=== PATIENT | female | born 1940 | race Caucasian/White ===

== ENCOUNTER → 2018-11-27 | Outpatient (CLI) | payer MEDICARE ==
[~2018-11-27] MED LIST: ALBU2.5V8 IH; AMLO10TA8 PO; ASPI325T8 PO; BUME1TAB3 PO; CHOL100013 PO; CLON0.2T PO; CLON1PAT10 TD; HYDR-2761 PO; LIDOCAINE 1%/EPI 1:100,000 20 ML VIAL. INJ ONE; LIDOCAINE 2%/EPI 1:100,000 20 ML VIAL. ONE; LIDOCAINE WITH 8.4% SOD BICARB 3 ML DISP.SYRIN. INJ ONE; LOSA100T14 PO; SIMV20TA3 PO; SOTA120T PO; TIOT18CA IH; TIOT4MIS3 IH
--- NOTE | 2018-11-29 14:06 | PATHOLOGY ---
[facility] Accession Number: [id number] . 01 Material submitted: . breast - LEFT BREAST CALCIFICATIONS IN GRID. Modifiers: left . 01 Clinical history: . Left breast calcifications . 02 Diagnosis: Breast tissue, left breast stereotactic needle biopsies: - DUCTAL CARCINOMA IN SITU, HIGH GRADE, SOLID TYPE WITH COMEDO-TYPE NECROSIS AND ASSOCIATED CALCIFICATIONS. SEE COMMENT LBQ/11/29/2018 . 02 Comment: Sections of the left breast stereotactic needle biopsy show high grade ductal carcinoma in situ of solid type with comedo-type necrosis. There are associated calcifications within the areas of comedo-type necrosis. There is no evidence of invasive carcinoma. Breast prognostic studies will be obtained, the results of which will be reported separately. The case is also examined by Dr. Brand, who concurs with the diagnosis. (JPM/db; 11/28/2018) . 02 Electronically signed: . Ulysses Hedrick MD, Pathologist NPI- [id number] . 01 Gross description: . The specimen is received in formalin, labeled "Brown, Christina, left breast calcifications" and consists of a pink cassette containing multiple needle cores of yellow tissue measuring 2.4 x 1.0 x 0.4 cm which are transferred to cassette A1. The specimen was obtained at 1:35 AM on 11/27/2018 and placed in formalin at 1:39 PM. The cold ischemic time is 4 minutes and the total formalin fixation time is greater than 6 hours but less than 72 hours. (SDY; 11/27/2018) SYU/SYU . 02 Pathologist provided ICD-10: D05.12 . 02 CPT . 562784 Specimen Comment: A courtesy copy of this report has been sent to Specimen Comment: [phone], , . Specimen Comment: Report sent to ,DR BALDERAS / DR KAUR Performed at: [address], [place] [id number] MD Gustavo Hahn MD Phone: [phone] Performed at: 02 [facility] [address] [place], [place] [id number] MD Ulysses Hedrick MD Phone: [phone]
--- NOTE | 2018-12-04 09:31 | RAD ---
Stereotactic left breast biopsy, 11/27/2018: HISTORY: Suspicious microcalcifications Previous imaging demonstrated a cluster of suspicious microcalcifications in the superolateral aspect of the left breast. Under local anesthesia, aseptic conditions and stereotactic guidance multiple 9 gauge vacuum-assisted core samples were obtained from this region via a superior approach. Specimen mammography demonstrated numerous targeted microcalcifications within the specimens. A biopsy marker was deposited at the biopsy site. The biopsy instrument was then removed and hemostasis obtained. Two-view digital mammograms were then obtained to document position of the biopsy marker. There are residual microcalcifications in this region as anticipated. The patient tolerated procedure well and left the department in good condition. The subsequent pathology report indicated the presence of ductal carcinoma in situ, high-grade. This is considered to be a concordant finding. Note: The findings were called to personnel in Dr. Patterson's office at 9:27 AM on 12/04/2018.
== END | disposition home or self-care (01) ==
LOC: MAMMO 12:35
PROVIDERS: ATTEND Surgery
DX: D05.12 Intraductal carcinoma in situ of left breast (principal)
CPT/HCPCS: 19081; 77065; 88305; 88361; C1713; 19085; 77022

== ENCOUNTER → 2019-01-03 | Outpatient (CLI) | payer MEDICARE ==
[~2019-01-03] MED LIST changes: -LIDOCAINE 1%/EPI 1:100,000 20 ML VIAL. INJ ONE; -LIDOCAINE 2%/EPI 1:100,000 20 ML VIAL. ONE; -LIDOCAINE WITH 8.4% SOD BICARB 3 ML DISP.SYRIN. INJ ONE
[2019-01-03 13:01] LABS: BASO # 0.1 x10^3/uL (0.0-0.2); BASO % 1 % (0-3); EOS # 0.2 x10^3/uL (0.0-0.7); EOS % 3 % (0-3); HEMOGLOBIN 13.8 g/dL (12.0-15.5); LYMPH # 2.1 x10^3/uL (1.0-4.8); LYMPH % 27 % (24-48); MEAN CORPUSCULAR HEMOGLOBIN 30 pg (25-35); MEAN CORPUSCULAR HGB CONC 34 g/dL (31-37); MEAN CORPUSCULAR VOLUME 89 fL (79-100); MONO # 0.6 x10^3/uL (0.0-1.1); MONO % 8 % (0-9); NEUT # 4.9 x10^3/uL (1.8-7.7); NEUT % 62 % (31-73); PLATELET COUNT 268 x10^3/uL (140-400); RED BLOOD COUNT 4.58 x10^6/uL (3.50-5.40); RED CELL DISTRIBUTION WIDTH 13.6 % (11.5-14.5); WHITE BLOOD COUNT 7.8 x10^3/uL (4.0-11.0)
[2019-01-03 13:10] LABS: ALBUMIN 4.3 g/dL (3.4-5.0); CALCIUM 11.3 mg/dL (8.5-10.1); CREATININE 1.1 mg/dL (0.6-1.0); GFR 47.9; POTASSIUM 4.2 mmol/L (3.5-5.1)
== END | disposition home or self-care (01) ==
LOC: SURGPAT 12:25
PROVIDERS: ATTEND Surgery
DX: Z01.818 Encounter for other preprocedural examination (principal); D05.12 Intraductal carcinoma in situ of left breast; Z88.2 Allergy status to sulfonamides
CPT/HCPCS: 36415; 80048; 82040; 85025

== ENCOUNTER 2020-05-29 17:54 | Emergency (ER) | payer MEDICARE ==
[~2020-05-29] VITALS: Ht 157.5 cm; Wt 45.4 kg
[~2020-05-29 17:54] MED LIST changes: +AMLO-187 PO; -AMLO10TA8 PO; +MAGN296S68 PO; +SIMV20TA18 PO; -SIMV20TA3 PO
[2020-05-29 18:39] LABS: BASO # 0.1 x10^3/uL (0.0-0.2); BASO % 1 % (0-3); EOS # 0.1 x10^3/uL (0.0-0.7); EOS % 1 % (0-3); HEMATOCRIT 38.7 % (36.0-47.0); HEMOGLOBIN 13.1 g/dL (12.0-15.5); LYMPH # 1.8 x10^3/uL (1.0-4.8); LYMPH % 21 % (24-48); MEAN CORPUSCULAR HEMOGLOBIN 31 pg (25-35); MEAN CORPUSCULAR HGB CONC 34 g/dL (31-37); MEAN CORPUSCULAR VOLUME 91 fL (79-100); MONO # 0.8 x10^3/uL (0.0-1.1); MONO % 9 % (0-9); NEUT # 5.9 x10^3/uL (1.8-7.7); NEUT % 68 % (31-73); PLATELET COUNT 238 x10^3/uL (140-400); RED BLOOD COUNT 4.26 x10^6/uL (3.50-5.40); RED CELL DISTRIBUTION WIDTH 13.4 % (11.5-14.5); WHITE BLOOD COUNT 8.7 x10^3/uL (4.0-11.0)
--- NOTE | 2020-05-29 18:45 | PHYS DOC ---
Past Medical History Past Medical History: Cancer, COPD, GERD, High Cholesterol, Hypertension, Other Additional Past Medical Histor: BREAST CANCER Past Surgical History: Pacemaker, Other Additional Past Surgical Histo: LEFT MASTECTOMY Smoking Status: Never Smoker Alcohol Use: None Drug Use: None General Adult EDM: Chief Complaint: MULTIPLE COMPLAINTS HPI: HPI: 79-year-old female past medical history significant for breast cancer stage 0, hypertension, hyperlipidemia, COPD, osteoarthritis, and pacemaker use, presents to the ED with complaints of generalized weakness, fatigue, loose brown stools, 2 times a day, dark urine, and 35 pound weight loss over the past few months. Also c/o "a ball back there, something hard," in her rectum. Reports she had a pacemaker replaced 2 months ago and had negative Covid test at that time. Review of Systems: Review of Systems: Constitutional: Denies fever or chills. [] Eyes: Denies change in visual acuity. [] HENT: Denies nasal congestion or sore throat. [] Respiratory: Denies cough or shortness of breath. [] Cardiovascular: Denies chest pain or edema. [] GI: Denies abdominal pain, nausea, vomiting, melena, hematochezia, hematemesis, : Denies dysuria. [] Musculoskeletal: Denies back pain or joint pain. [] Integument: Denies rash. [] Neurologic: Denies headache, focal weakness or sensory changes. [] Endocrine: Denies polyuria or polydipsia. [] Lymphatic: Denies swollen glands. [] Psychiatric: Denies depression or anxiety. [] Heart Score: Risk Factors: Risk Factors: DM, Current or recent (<one month) smoker, HTN, HLP, family history of CAD, obesity. Risk Scores: Score 0 - 3: 2.5% MACE over next 6 weeks - Discharge Home Score 4 - 6: 20.3% MACE over next 6 weeks - Admit for Clinical Observation Score 7 - 10: 72.7% MACE over next 6 weeks - Early Invasive Strategies Allergies: Allergies: Allergies Coded Allergies Type Severity Reaction Last Updated Verified Sulfa (Sulfonamide Antibiotics) Allergy Intermediate 01/07/19 Yes Physical Exam: PE: Constitutional: no acute distress, non-toxic appearance, clothing loose and does not fit (at least 4 sizes too big) HENT: Normocephalic, atraumatic, Eyes: EOMI, conjunctiva normal, no discharge. Neck: Normal range of motion, supple, Cardiovascular: S1/2 present, regular rhythm Lungs & Thorax: Speaking in full sentences, bilateral equal chest rise, no tachy pnea or increased work of breathing Abdomen: soft, no tenderness, Skin: Warm, dry, no erythema, no rash, very thin with skin folds Back: No tenderness, no CVA tenderness. [] Extremities: No tenderness, no cyanosis, no edema Neurologic: Alert and oriented X 3, normal motor function, normal sensory function, no focal deficits noted. [] Psychologic: Affect normal, judgement normal, mood normal. [] Rectal exam: large amount of stool in rectum removed via disimpaction, normal brown color, pt tolerated exam well, no brbpr, no melena Current Patient Data: Labs: Laboratory Tests Test 05/29/20 18:15 White Blood Count 8.7 x10^3/uL (4.0-11.0) Red Blood Count 4.26 x10^6/uL (3.50-5.40) Hemoglobin 13.1 g/dL (12.0-15.5) Hematocrit 38.7 % (36.0-47.0) Mean Corpuscular Volume 91 fL (79-100) Mean Corpuscular Hemoglobin 31 pg (25-35) Mean Corpuscular Hemoglobin Concent 34 g/dL (31-37) Red Cell Distribution Width 13.4 % (11.5-14.5) Platelet Count 238 x10^3/uL (140-400) Neutrophils (%) (Auto) 68 % (31-73) Lymphocytes (%) (Auto) 21 % (24-48) L Monocytes (%) (Auto) 9 % (0-9) Eosinophils (%) (Auto) 1 % (0-3) Basophils (%) (Auto) 1 % (0-3) Neutrophils # (Auto) 5.9 x10^3/uL (1.8-7.7) Lymphocytes # (Auto) 1.8 x10^3/uL (1.0-4.8) Monocytes # (Auto) 0.8 x10^3/uL (0.0-1.1) Eosinophils # (Auto) 0.1 x10^3/uL (0.0-0.7) Basophils # (Auto) 0.1 x10^3/uL (0.0-0.2) Laboratory Tests 05/29/20 18:15 Vital Signs: Vital Signs Date Time Temp Pulse Resp B/P (MAP) Pulse Ox O2 Delivery O2 Flow Rate FiO2 05/29/20 18:04 98.1 62 19 188/76 (113) 97 Room Air 98.1 EKG: EKG: Sinus paced rhythm at 60 bpm, no axis deviation, normal intervals, no T wave inversions, no ST elevations or ST depressions Radiology/Procedures: Radiology/Procedures: IMAGING REPORT Signed PATIENT: WILIAN TANNER ACCOUNT: [id number] : 1940 LOCATION: ER AGE: 79 SEX: F EXAM STATUS: REG ER ORD. PHYSICIAN: MIMI CARUSO DO REASON: weakness PROCEDURE: PORTABLE CHEST 1V Exam: Chest one view INDICATION: Weakness TECHNIQUE: Frontal view of the chest Comparisons: None FINDINGS: Pacer with leads terminating the right atrium and ventricle. The cardiomediastinal silhouette and pulmonary vessels are within normal limits. Trace bilateral pleural effusions. Visualized lung bases otherwise clear. IMPRESSION: Trace bilateral pleural effusions. Electronically signed by: Beulah Castillo MD (05/29/2020 7:40 PM) [facility] DICTATED and SIGNED BY: BEULAH CASTILLO MD DATE: 05/29/20 [id number] IMAGING REPORT Signed PATIENT: WILIAN TANNER ACCOUNT: [id number] : 1940 LOCATION: ER AGE: 79 SEX: F EXAM STATUS: REG ER ORD. PHYSICIAN: MIMI CARUSO DO REASON: weakness, constipation, weight loss PROCEDURE: CT HEAD WO CONTRAST EXAM: CT head without contrast INDICATION: Weakness, constipation, weight loss COMPARISON: None available TECHNIQUE: Axial CT imaging through the head without intravenous contrast. Coronal reformats were obtained. One or more of the following individualized dose reduction techniques were uti lized for this examination: 1. Automated exposure control 2. Adjustment of the mA and/or kV according to patient size 3. Use of iterative reconstruction technique. FINDINGS: The ventricles and sulci are within normal limits for age. There is a 4 mm hypodensity in the left frontal white matter, nonspecific. No intracranial hemorrhage hemorrhage or acute infarct. Skull and scalp are intact. The visualized portion of the paranasal sinuses and mastoid air cells are clear. Globes and orbits are intact. IMPRESSION: 1. No acute intracranial abnormality. 2. 4 mm hypodensity in the left frontal white matter, nonspecific. Electronically signed by: Rigo Friend MD (05/29/2020 8:38 PM) [id number] DICTATED and SIGNED BY: RIGO FRIEND MD DATE: 05/29/[id number] 0 IMAGING REPORT Signed PATIENT: WILIAN TANNER ACCOUNT: [id number] : 1940 LOCATION: ER AGE: 79 SEX: F EXAM STATUS: REG ER ORD. PHYSICIAN: MIMI CARUSO DO REASON: weakness, constipation, weight loss, OMNI 300, 75 ML IV PROCEDURE: CT CHEST ABD PELVIS W/CONTRAST Exam: CT of chest, abdomen and pelvis with contrast INDICATION: Weakness, constipation, weight loss TECHNIQUE: Sequential axial images through the chest, abdomen and pelvis obtained following the administration of 75 mL of Omni 300 IV contrast. Sagittal and coronal reformatted images were reconstructed from the axial data and reviewed. Comparisons: Chest x-ray same day FINDINGS: Visualized portions of the thyroid are unremarkable. No enlarged mediastinal lymph nodes are identified. Heart size is normal. No pericardial effusion. Thoracic aorta has a normal course and caliber. Pulmonary artery is not enlarged. Airways are patent. No consolidation or pneumothorax. There is a 5 mm nodule in the right middle lobe series 2 image 28. Several other small pulmonary nodules are noted in the right middle lobe. No pleural effusion or thickening. Liver, spleen, pancreas, gallbladder and adrenals are unremarkable. Kidneys demonstrate symmetric enhancement. Nonobstructing calculus at the lower pole of the left kidney. No ureteral calculi are identified. Bladder is decompressed not well evaluated. Uterus is not enlarged. No abnormal adnexal mass. Heart and stool noted in the rectum. There is perirectal stranding and edema noted in the presacral space. Appendix is normal. No free intra-abdominal air or fluid. No obstruction. Abdominal aorta has a normal course and caliber. Abdominal vasculature is patent. No enlarged abdominal lymph nodes are identified. No suspicious osseous lesions or acute fractures. IMPRESSION: 1. Large amount stool at the rectum with wall thickening at the rectum and adjacent perirectal fat stranding and presacral edema. Correlate with physical exam for underlying neoplasm. Findings may relate to a focal colitis. 2. Numerous pulmonary nodules measuring up to 6 mm in the lungs. 6 month follow-up chest CT is recommended to reassess. Exposure: One or more of the following in the visualized dose reduction techniques were utilized for this examination: 1. Automated exposure control 2. Adjustment of the MA and/or KV according to patient size 3. Use of iterative of reconstructive technique Electronically signed by: Beulah Castillo MD (05/29/2020 9:06 PM) [facility] DICTATED and SIGNED BY: BEULAH CASTILLO MD DATE: 05/29/[id number] 0 Course & Med Decision Making: Course & Med Decision Making Pertinent Labs and Imaging studies reviewed. (See chart for details) Concern for irregular bowel movements generalized weakness. Covid test pending. Influenza negative. Urinalysis with no infection. Given history of breast cancer and weight loss, patient was scanned to evaluate for cancer. CT abdomen pelvis is concerning for rectal mass that could resemble stool versus malignancy. Rectum was disimpacted. Will give outpatient GI follow-up for colonoscopy. CT the chest showed multiple pulmonary nodules, recommend 6-month follow-up. I spoke with patient and her son regarding this and printed off the CT impression so they could take it to her PCP appointment with Dr. Kaur on Sunday at 1:30 PM-they were both made aware this could represent malignancy although can be benign. I did offer admission for evaluation but given risk of covid, I feel this is better managed outpt. Pt and son both agree. Will treat colitis with bactrim, constipation with stool softeners and a suppository. Pt lives alone and has some early dementia but has no memory loss on my evaluation. Son does not feel patient is a danger to herself to return home. Will dis charge home with strict ED return precautions were given for dehydration, fever, falls or head injury. Encouraged urgent outpatient follow-up with PMD. Referrals for GI and oncology given. life-threatening processes were considered but are low suspicion at this time, given history, physical exam and ED workup. Pt was educated on all prescription medications and adverse effects. All patient's questions were answered and pt was stable at time of discharge. Life/limb-threatening differential includes but is not limited to, GI bleeding, toxigenic versus infectious diarrhea, shock, mesenteric ischemia, electrolyte abnormality, thyroid storm, toxidrome, antibiotic related, malignancy, inflammat ory bowel disease or surgical abdomen (appendicitis or diverticulitis). I spoken with the patient and her caregivers. I explained the patient's condition, diagnoses and treatment plan based on the information available to me at this time. I have answered the patient and her caregiver's questions and addressed any concerns. The patient and her caregivers have a good understanding of patient's diagnosis, condition and treatment plan as can be expected at this point. Vital signs have been stable. Patient's condition is stable and appropriate for discharge from the emergency department. Patient will pursue further outpatient evaluation with primary care physician or other designated or consulting physician as outlined in the discharge instructions. The patient and/or caregivers are agreeable to this plan of care and follow-up instructions have been explained in detail. The patient and/or caregivers have received these instructions in written form and have expressed an understanding of the discharge instructions. The patient and/or caregivers are aware that any significant change of condition or worsening of symptoms should prompt immediate return to this or the closest emergency department or call to 911. Leana Disclaimer: Leana Disclaimer: This electronic medical record was generated, in whole or in part, using a voice recognition dictation system. Departure Departure Impression: Primary Impression: Pulmonary nodules Additional Impressions: Weight loss Weakness Fecal impaction of rectum Disposition: [place] HOME SELF CARE/HOMELESS Condition: STABLE Referrals: REBEL KAUR MD (PCP) On Sunday 1:30p to discuss lung nodules and rectal mass? Patient Instructions: Colitis, Fecal Impaction, Pulmonary Nodule, Weakness Additional Instructions: FOLLOW UP WITH GASTROENTEROLOGY: [facility] Address: [address] [place] [address] EMERGENCY DEPARTMENT GENERAL DISCHARGE INSTRUCTIONS Thank you for coming to [facility] Emergency Department (ED) today and trusting us with you care. We trust that you had a positive experience in our Emergency Department. If you wish to speak to the department management, you may call the Director at [phone]. YOUR FOLLOW UP INSTRUCTIONS ARE FOLLOWS: 1. Do you have a private Doctor? If you do not have a private doctor, please ask for a resource list of physicians or clinics that may be able to assist you with follow up care. 2. The Emergency Physicain has interpreted your x-rays. The X-Ray specialist will also review them. If there is a change in the findings, you will be notified in 48 hours when at all possible. 3. A lab test or culture has been done, your results will be reviewed and you will be notified if you need a change in treatment. ADDITIONAL INSTRUCTIONS AND INFORMATION: 1. Your care today has been supervised by a physician who is specially trained in emergency care. Many problems require more than one evaluation for a complete diagnosis and treatment. We recommend that you schedule your follow up appointment as recommended to ensure complete treatment of you illness or injury. If you are unable to obtain follow up care and continue to have a problem, or if your condition worsens, we recommend that you return to the ED. 2. We are not able to safely determine your condition over the phone nor are we able to give sound medical advice over the phone. For these safety reasons, if you call for medical advice we will ask you to come to the ED for further evaluation. 3. If you have any questions regarding these discharge instructions please call the ED at [phone]. SAFETY INFORMATION: In the interest of safety, wellness, and injury prevention; we encourage you to wear your sealbelt, if you smoke; quite smoking, and we encourage family to use a protective helmet for bicycling and other sporting events that present an increased risk for head injury. IF YOUR SYMPTOMS WORSEN OR NEW SYMPTOMS DEVELOP, OR YOU HAVE CONCERNS ABOUT YOUR CONDITION; OR IF YOUR CONDITION WORSENS WHILE YOU ARE WAITING FOR YOUR FOLLOW UP APPOINTMENT; EITHER CONTACT YOUR PRIMARY CARE DOCTOR, THE PHYSICIAN WHOSE NAME AND NUMBER YOU WERE GIVEN, OR RETURN TO THE ED IMMEDIATELY. Scripts Docusate Sodium (COLACE) 100 Mg Capsule 1 CAP PO BID for 14 Days, #28 CAP 0 Refills Prov: MIMI CARUSO DO 05/29/20 Glycerin (ADULT GLYCERIN) 1 Each Supp.rect 1 EACH RC DAILY PRN for CONSTIPATION, #3 SUPP.RECT Prov: VOMIMI HSU DO 05/29/20 Sulfamethoxazole/Trimethoprim (BACTRIM DS TABLET) 1 Each Tablet 1 TAB PO BID for infection for 5 Days, #10 TAB Prov: MIMI CARUSO DO 05/29/20 MIMI CARUSO DO May 29, 2020 18:45
[2020-05-29 19:02] LABS: INFLUENZA A PATIENT NEGATIVE (NEGATIVE); INFLUENZA B PATIENT NEGATIVE (NEGATIVE)
[2020-05-29 19:16] LABS: CALCIUM 10.4 mg/dL (8.5-10.1); CREATININE 0.8 mg/dL (0.6-1.0); POTASSIUM 3.7 mmol/L (3.5-5.1)
[2020-05-29 19:21] LABS: ALBUMIN 3.6 g/dL (3.4-5.0); DIRECT BILIRUBIN 0.1 mg/dL (0.0-0.2); MAGNESIUM 2.4 mg/dL (1.8-2.4); TOTAL BILIRUBIN 0.5 mg/dL (0.2-1.0); TOTAL PROTEIN 6.5 g/dL (6.4-8.2)
--- NOTE | 2020-05-29 19:42 | RAD ---
Exam: Chest one view INDICATION: Weakness TECHNIQUE: Frontal view of the chest Comparisons: None FINDINGS: Pacer with leads terminating the right atrium and ventricle. The cardiomediastinal silhouette and pulmonary vessels are within normal limits. Trace bilateral pleural effusions. Visualized lung bases otherwise clear. IMPRESSION: Trace bilateral pleural effusions. Electronically signed by: Beulah Mcduffie MD (05/29/2020 7:40 PM) [facility]
[2020-05-29] MEDS ORDERED: IOHEXOL 300 MG/ML 100ML VIAL. IV ONE (20:15)
[2020-05-29] MEDS ORDERED: CONTRAST GIVEN. MC PRN (20:15)
--- NOTE | 2020-05-29 20:40 | RAD ---
EXAM: CT head without contrast INDICATION: Weakness, constipation, weight loss COMPARISON: None available TECHNIQUE: Axial CT imaging through the head without intravenous contrast. Coronal reformats were obt ained. One or more of the following individualized dose reduction techniques were utilized for this examinat ion: 1. Automated exposure control 2. Adjustment of the mA and/or kV according to patient size 3. Use of iterative reconstruction technique. FINDINGS: The ventricles and sulci are within normal limits for age. There is a 4 mm hypodensity in the left fr ontal white matter, nonspecific. No intracranial hemorrhage hemorrhage or acute infarct. Skull and sc alp are intact. The visualized portion of the paranasal sinuses and mastoid air cells are clear. Glob es and orbits are intact. IMPRESSION: 1. No acute intracranial abnormality. 2. 4 mm hypodensity in the left frontal white matter, nonspecific. Electronically signed by: Ashlee Friend MD (05/29/2020 8:38 PM) [id number]
--- NOTE | 2020-05-29 21:08 | RAD ---
Exam: CT of chest, abdomen and pelvis with contrast INDICATION: Weakness, constipation, weight loss TECHNIQUE: Sequential axial images through the chest, abdomen and pelvis obtained following the admin istration of 75 mL of Omni 300 IV contrast. Sagittal and coronal reformatted images were reconstructe d from the axial data and reviewed. Comparisons: Chest x-ray same day FINDINGS: Visualized portions of the thyroid are unremarkable. No enlarged mediastinal lymph nodes are identifi ed. Heart size is normal. No pericardial effusion. Thoracic aorta has a normal course and caliber. Pulmon mirza artery is not enlarged. Airways are patent. No consolidation or pneumothorax. There is a 5 mm nodule in the right middle lobe series 2 image 28. Several other small pulmonary nodules are noted in the right middle lobe. No pleural effusion or thickening. Liver, spleen, pancreas, gallbladder and adrenals are unremarkable. Kidneys demonstrate symmetric enhancement. Nonobstructing calculus at the lower pole of the left kidn ey. No ureteral calculi are identified. Bladder is decompressed not well evaluated. Uterus is not enlarged. No abnormal adnexal mass. Heart and stool noted in the rectum. There is perirectal stranding and edema noted in the presacral s pace. Appendix is normal. No free intra-abdominal air or fluid. No obstruction. Abdominal aorta has a normal course and caliber. Abdominal vasculature is patent. No enlarged abdominal lymph nodes are identified. No suspicious osseous lesions or acute fractures. IMPRESSION: 1. Large amount stool at the rectum with wall thickening at the rectum and adjacent perirectal fat s tranding and presacral edema. Correlate with physical exam for underlying neoplasm. Findings may rela te to a focal colitis. 2. Numerous pulmonary nodules measuring up to 6 mm in the lungs. 6 month follow-up chest CT is recom mended to reassess. Exposure: One or more of the following in the visualized dose reduction techniques were utilized for this examination: 1. Automated exposure control 2. Adjustment of the MA and/or KV according to patient size 3. Use of iterative of reconstructive technique Electronically signed by: Beulah Mcduffie MD (05/29/2020 9:06 PM) [facility]
[2020-05-29 21:31] LABS: BILIRUBIN,URINE NEGATIVE (NEG); CLARITY,URINE CLEAR; COLOR,URINE YELLOW; NITRITE,URINE NEGATIVE (NEG); PROTEIN,URINE NEGATIVE (NEG-TRACE); UROBILINOGEN,URINE 0.2 mg/dL (0.2 mg/dL)
[2020-05-29 21:36] LABS: BACTERIA,URINE 0 /HPF (0-FEW); RBC,URINE 0 /HPF (0-2); WBC,URINE OCC /HPF (0-4)
[2020-05-29 21:38] LABS: AMPHETAMINE/METHAMPHETAMINE NEG (NEG); BARBITURATES NEG (NEG); BENZODIAZEPINES NEG (NEG); CANNABINOIDS NEG (NEG); COCAINE NEG (NEG); METHADONE NEG (NEG); OPIATES NEG (NEG); PHENCYCLIDINE NEG (NEG)
[2020-05-29] MEDS ORDERED: SULF1TAB24 PO (22:13)
[2020-05-29 22:21] VITALS: BP 138/64
[2020-05-29] MEDS ORDERED: GLYC1SUP RC (22:31)
[2020-05-29] MEDS ORDERED: DOCU-109 PO (22:31)
--- NOTE | 2020-05-30 11:05 | EKG ---
[facility] [address] [place] [address] Test Date: 2020-05-29 Test Time: 18:23:15 Pat Name: WILIAN TANNER Department: Room: Gender: F Carpenter Repairer: : 1940 Requested By: MIMI CARUSO Order Number: [id number] Reading MD: Measurements Intervals [place] Rate: 60 P: 58 OK: 188 QRS: 12 QRSD: 80 T: 40 QT: 440 QTc: 444 Interpretive Statements SINUS RHYTHM CONSIDER RIGHT VENTRICULAR HYPERTROPHY POSSIBLY ABNORMAL ECG RI6.02 No previous ECG available for comparison
--- NOTE | 2020-06-01 11:12 | NUR ---
IP: Informed pt of negative COVID test. Pt verbalized understanding.
== END 2020-05-29 22:35 | disposition home or self-care (01) ==
LOC: ER 17:54
DX: R91.1 Solitary pulmonary nodule (principal); R53.1 Weakness; K56.41 Fecal impaction; R63.4 Abnormal weight loss; Z68.1 Body mass index [BMI] 19.9 or less, adult; Z20.828 Contact with and (suspected) exposure to other viral communicable diseases; J90 Pleural effusion, not elsewhere classified; K21.9 Gastro-esophageal reflux disease without esophagitis; E78.00 Pure hypercholesterolemia, unspecified; I10 Essential (primary) hypertension; J44.9 Chronic obstructive pulmonary disease, unspecified; Z95.0 Presence of cardiac pacemaker; Z88.2 Allergy status to sulfonamides
CPT/HCPCS: 36415; 70450; 71045; 71260; 74177; 80048; 80076; 80307; 81001; 82550; 83690; 83735; 85025; 87804; 93005; 99285; C9803; Q9967; U0003